=== PATIENT | female | born 1995 | race Caucasian/White ===

== ENCOUNTER 2023-01-08 03:13 | Emergency (ER) | payer OTHER, SELFPAY ==
[2023-01-08] MEDS ORDERED: Promethazine HCl 25 MG/ML VIAL ONE (04:13)
[2023-01-08] MEDS ORDERED: Ketorolac Tromethamine 30 MG/ML VIAL ONE (04:52)
== END 2023-01-08 05:37 | disposition home or self-care (01) ==
LOC: NAV ERS 03:13
DX: S93.401A Sprain of unspecified ligament of right ankle, initial encounter (principal); W17.2XXA Fall into hole, initial encounter; Y93.01 Activity, walking, marching and hiking; Y92.69 Other specified industrial and construction area as the place of occurrence of the external cause; Z87.891 Personal history of nicotine dependence
CPT/HCPCS: 96374; 96375; J1885; J2550